=== PATIENT | female | born 1975 | race Caucasian/White ===

== ENCOUNTER 2024-01-27 16:59 | Emergency (ER) | payer OTHER ==
[~2024-01-27] VITALS: Ht 167.6 cm; Wt 59.0 kg
[2024-01-27 17:19] VITALS: BP 150/83; PULSE 90; RESP 16; TEMP 98.8; O2SAT 99
== END 2024-01-27 20:03 | disposition home or self-care (01) ==
LOC: ER 17:00
DX: S02.2XXA Fracture of nasal bones, initial encounter for closed fracture (principal); J34.89 Other specified disorders of nose and nasal sinuses; Z88.0 Allergy status to penicillin; W22.8XXA Striking against or struck by other objects, initial encounter; Y93.89 Activity, other specified; Y92.89 Other specified places as the place of occurrence of the external cause; Y99.8 Other external cause status
CPT/HCPCS: 70150; 99283

== ENCOUNTER 2024-03-09 13:40 | Inpatient (IN) | payer OTHER ==
[~2024-03-09] VITALS: Ht 167.6 cm; Wt 58.0 kg
[2024-03-09 14:23] LABS: BASOPHILS % (AUTO) 0.4 % (0-1); EOSINOPHILS # (AUTO) 0.1 X10'3 (0-0.9); EOSINOPHILS % (AUTO) 1.1 % (0-6); HEMATOCRIT 39.9 % (35.0-45.0); HEMOGLOBIN 13.5 g/dl (12.0-16.0); LYMPHOCYTES # (AUTO) 1.9 X10'3 (1.1-4.8); LYMPHOCYTES % (AUTO) 23.9 % (21-51); MEAN CORPUSCULAR HEMOGLOBIN 31.4 PG (27.0-31.0); MEAN CORPUSCULAR HGB CONC 33.9 g/dL (33.0-36.5); MEAN CORPUSCULAR VOLUME 92.6 FL (78-98); MONOCYTES # (AUTO) 0.3 X10'3 (0-0.9); MONOCYTES % (AUTO) 4.3 % (2-12); NEUTROPHILS # (AUTO) 5.4 X10'3 (1.8-7.7); NEUTROPHILS % (AUTO) 70.3 % (42-75); PLATELET COUNT 263 X10'3 (140-440); RED BLOOD COUNT 4.31 X10'6 (4.20-5.60); WHITE BLOOD COUNT 7.8 X10'3 (4.5-11.0)
[2024-03-09 14:27] LABS: URINE HCG NEGATIVE (NEG)
[2024-03-09 14:28] LABS: BILIRUBIN,URINE SMALL (Neg); CLARITY,URINE CLEAR (Clear); COLOR,URINE YELLOW (Yellow); GLUCOSE, URINE NEGATIVE (Neg); KETONES,URINE TRACE mg/dl (Neg); LEUKOCYTE ESTERASE ,URINE NEGATIVE (Neg); NITRITES, URINE NEGATIVE (Neg); OCCULT BLOOD,URINE MODERATE (Neg); PH,URINE 5.5 (4.8-8.0); PROTEIN,URINE NEGATIVE (Neg); UROBILINOGEN,URINE 0.2 E.U/dL (0.2-1.0)
[2024-03-09 14:29] LABS: UA COLLECTION TYPE CLN CATCH MIDSTREAM
[2024-03-09 14:34] LABS: ALANINE AMINOTRANSFERASE 21 U/L (12-78); ALBUMIN 3.9 G/DL (3.4-5.0); ALBUMIN/GLOBULIN RATIO 1.1 (1.1-1.5); ALKALINE PHOSPHATASE 58 IU/L (46-116); ANION GAP 10 (8-16); ASPARTATE AMINO TRANSFERASE 11 U/L (10-37); BILIRUBIN,TOTAL 0.8 MG/DL (0.1-1.0); BLOOD UREA NITROGEN 15 MG/DL (7-18); BUN/CREATININE RATIO 16.3 (10.0-20.0); CALCIUM 8.8 MG/DL (8.5-10.1); CHLORIDE 105 MMOL/L (99-107); CREATININE 0.92 MG/DL (0.40-0.90); GLUCOSE 129 MG/DL (70-104); LIPASE 27 U/L (16-77); POTASSIUM 3.7 MMOL/L (3.5-5.1); SODIUM 141 MMOL/L (135-145); TOTAL CARBON DIOXIDE 26.4 MMOL/L (24-32); TOTAL PROTEIN 7.5 G/DL (6.4-8.2); eCRCL 68 ML/MIN; eGFR 65 ML/MIN
[2024-03-09 14:36] LABS: BACTERIA,URINE FEW /HPF (Neg); MUCUS STRANDS MANY /LPF (Neg); SQUAMOUS EPITHELIAL CELL,UR FEW /LPF (FEW); WBC,URINE 0-4 /HPF (0-4)
[2024-03-09] MEDS ORDERED: iohexol 300mg/ml 100ml inj. ONE (15:00)
[2024-03-09] MEDS: normal saline 1000ML IV soln IVB ONE (15:25)
[2024-03-09] MEDS ORDERED: potassium Cl 40MEQ/1/2NS 520ml 520 ML IV PRN (18:00)
[2024-03-09] MEDS ORDERED: potassium Cl 20 mEq SR tablet PO PRN ×2 (18:00)
[2024-03-09] MEDS ORDERED: magnesium sulf-water 4G/100mL 100 ML IV PRN (18:00)
[2024-03-09] MEDS ORDERED: magnesium sulf-water 2g/50mL 50 ML IV PRN (18:00)
[2024-03-09] MEDS ORDERED: magnesium Cl slow-release 64mg tablet PO PRN (18:00)
[2024-03-09] MEDS ORDERED: HYDROcodone/acetaminophen 5mg/325mg tablet PO PRN (18:00)
[2024-03-09] MEDS ORDERED: acetaminophen 325mg tablet PO PRN (18:00)
[2024-03-09] MEDS ORDERED: morphine 2 MG/ML inj. syringe IV PRN (18:00)
[2024-03-09] MEDS ORDERED: [UNRECOGNIZED DRUG - REMARK] PO (18:23)
[2024-03-09] MEDS ORDERED: FLUT15.87 NAS (18:23)
[2024-03-09] MEDS: normal saline 1000ml 1,000 ML IV SCH (18:48)
[2024-03-09 20:30] VITALS: BP 147/53; PULSE 86; RESP 16; RESP 17; TEMP 97.8; O2SAT 94
[2024-03-09] MEDS ORDERED: temazepam 15mg capsule PO PRN (21:00)
[2024-03-09] MEDS: diatr meglu/diatrizoate 30ml oral sol.-(3 dose) bottle PO SCH (21:17)
[2024-03-09] MEDS: metroNIDAZOLE-Flagyl 500mg/NS 100 ML IV SCH (21:17)
[2024-03-09] MEDS: enoxaparin 40mg/0.4ml syringe SQ SCH (21:25)
[2024-03-09] MEDS: ciprofloxacin lact 400MG/200ML 200 ML IV SCH (22:33)
[2024-03-10] VITALS (21 sets, daily range): BP systolic 115–144; BP diastolic 45–83; PULSE 67–106; RESP 12–20; TEMP 97.5–98.4; O2SAT 96–100
[2024-03-10] MEDS: morphine 2 MG/ML inj. syringe IV PRN (04:04)
[2024-03-10 05:33] LABS: BASOPHILS % (AUTO) 0.5 % (0-1); EOSINOPHILS # (AUTO) 0.1 X10'3 (0-0.9); EOSINOPHILS % (AUTO) 2.2 % (0-6); HEMOGLOBIN 11.4 g/dl (12.0-16.0); LYMPHOCYTES # (AUTO) 1.8 X10'3 (1.1-4.8); LYMPHOCYTES % (AUTO) 28.9 % (21-51); MEAN CORPUSCULAR HEMOGLOBIN 31.2 PG (27.0-31.0); MEAN CORPUSCULAR HGB CONC 33.6 g/dL (33.0-36.5); MEAN CORPUSCULAR VOLUME 92.8 FL (78-98); MONOCYTES # (AUTO) 0.4 X10'3 (0-0.9); MONOCYTES % (AUTO) 6.3 % (2-12); NEUTROPHILS % (AUTO) 62.1 % (42-75); PLATELET COUNT 223 X10'3 (140-440); RED BLOOD COUNT 3.67 X10'6 (4.20-5.60); WHITE BLOOD COUNT 6.4 X10'3 (4.5-11.0)
[2024-03-10 05:49] LABS: ALANINE AMINOTRANSFERASE 16 U/L (12-78); ALKALINE PHOSPHATASE 42 IU/L (46-116); ANION GAP 7 (8-16); ASPARTATE AMINO TRANSFERASE 11 U/L (10-37); BILIRUBIN,TOTAL 0.6 MG/DL (0.1-1.0); BLOOD UREA NITROGEN 7 MG/DL (7-18); BUN/CREATININE RATIO 9.5 (10.0-20.0); CALCIUM 8.1 MG/DL (8.5-10.1); CHLORIDE 108 MMOL/L (99-107); CREATININE 0.74 MG/DL (0.40-0.90); GLUCOSE 89 MG/DL (70-104); POTASSIUM 3.8 MMOL/L (3.5-5.1); SODIUM 138 MMOL/L (135-145); TOTAL CARBON DIOXIDE 22.7 MMOL/L (24-32); eCRCL 84 ML/MIN; eGFR 83 ML/MIN
[2024-03-10] MEDS: acetaminophen 325mg tablet PO PRN (10:00)
[2024-03-10] MEDS: SUMAtriptan 25 MG tablet PO ONE (15:51)
[2024-03-10] MEDS ORDERED: BUPIVAcaine 2.5mg/ml inj 50ml vial (contains preservative) ONE (15:54)
[2024-03-10] MEDS ORDERED: morphine 2 MG/ML inj. syringe IV PRN (17:25)
[2024-03-10] MEDS ORDERED: labetalol 20mg/4ml (5mg/ml) syringe IV PRN (17:25)
[2024-03-10] MEDS ORDERED: hydrALAZINE 20mg/ml inj. IV PRN (17:25)
[2024-03-10] MEDS ORDERED: meperidine/PF 25mg/ml syringe IV PRN ×2 (17:25)
[2024-03-10] MEDS ORDERED: proCHLORperazine 10 MG/2 ml inj IV PRN (17:25)
[2024-03-10] MEDS ORDERED: ondansetron/PF 4mg/2ml inj IV PRN ×2 (17:25→19:45)
[2024-03-10] MEDS ORDERED: midazolam 1 mg/ML 2ml injection ONE (17:43)
[2024-03-10] MEDS ORDERED: sevoflurane 250ml liquid IH ONE (17:51)
[2024-03-10] MEDS ORDERED: fentaNYL /PF 50mcg/ml 5ml ampule ONE (17:54)
[2024-03-10] MEDS: BUPIVAcaine/PF 2.5 mg/ml (0.25%) 30ml vial IJ ONE (18:41)
[2024-03-10] MEDS ORDERED: dexamethasone sod phosphate 4mg/ml inj. ONE (19:10)
[2024-03-10] MEDS ORDERED: rocuronium 10mg/ml inj IV ONE (19:10)
[2024-03-10] MEDS ORDERED: ondansetron/PF 4mg/2ml inj ONE (19:10)
[2024-03-10] MEDS ORDERED: LIDOcaine 2% (20mg/ml) 5ml vial ONE (19:10)
[2024-03-10] MEDS ORDERED: propofol inj 20 ML IV ONE (19:10)
[2024-03-10] MEDS ORDERED: ceFOXitin 1000 MG inj ONE ×2 (19:10)
[2024-03-10] MEDS ORDERED: neostigmine methylsulfate 1 MG/ML 10ml vial ONE (19:11)
[2024-03-10] MEDS: acetaminophen 1,000mg/100ml IV 100 ML IV ONE (19:29)
[2024-03-10] MEDS: meperidine/PF 25mg/ml syringe IV PRN (19:29)
[2024-03-10] MEDS: ondansetron/PF 4mg/2ml inj IV PRN (19:42)
[2024-03-10] MEDS ORDERED: naloxone 0.4 mg/ml inj IV PRN (19:45)
[2024-03-10] MEDS: morphine 4 MG/ML inj SYRINge IV PRN (19:45)
[2024-03-10] MEDS ORDERED: HYDROcodone/acetaminophen 5mg/325mg tablet PO PRN (19:45)
[2024-03-10] MEDS: ketorolac trometh. 30mg/ml inj. IV SCH (19:52)
[2024-03-10] MEDS: HYDROcodone/acetaminophen 10/325mg tab PO PRN (20:39)
[2024-03-10] MEDS: ringers solution, lacted 1,000 ML IV SCH (21:03)
[2024-03-11] VITALS (8 sets, daily range): BP systolic 104–128; BP diastolic 52–73; PULSE 75–97; RESP 16–18; TEMP 97.8–98.4; O2SAT 94–100
[2024-03-11 06:42] LABS: BASOPHILS % (AUTO) 0.1 % (0-1); EOSINOPHILS % (AUTO) 0 % (0-6); HEMOGLOBIN 13.1 g/dl (12.0-16.0); LYMPHOCYTES # (AUTO) 0.3 X10'3 (1.1-4.8); LYMPHOCYTES % (AUTO) 4.7 % (21-51); MEAN CORPUSCULAR HEMOGLOBIN 31.8 PG (27.0-31.0); MEAN CORPUSCULAR HGB CONC 34.6 g/dL (33.0-36.5); MEAN CORPUSCULAR VOLUME 91.8 FL (78-98); MEAN PLATELET VOLUME 7.3 FL (7.4-10.4); MONOCYTES # (AUTO) 0.1 X10'3 (0-0.9); MONOCYTES % (AUTO) 1.1 % (2-12); NEUTROPHILS # (AUTO) 6.7 X10'3 (1.8-7.7); NEUTROPHILS % (AUTO) 94.1 % (42-75); PLATELET COUNT 261 X10'3 (140-440); RED BLOOD COUNT 4.14 X10'6 (4.20-5.60); WHITE BLOOD COUNT 7.1 X10'3 (4.5-11.0)
[2024-03-11 07:06] LABS: ALANINE AMINOTRANSFERASE 17 U/L (12-78); ALBUMIN 3.2 G/DL (3.4-5.0); ALKALINE PHOSPHATASE 46 IU/L (46-116); ANION GAP 14 (8-16); ASPARTATE AMINO TRANSFERASE 13 U/L (10-37); BILIRUBIN,TOTAL 0.6 MG/DL (0.1-1.0); BLOOD UREA NITROGEN 6 MG/DL (7-18); BUN/CREATININE RATIO 8.7 (10.0-20.0); CALCIUM 8.4 MG/DL (8.5-10.1); CHLORIDE 104 MMOL/L (99-107); CREATININE 0.69 MG/DL (0.40-0.90); GLUCOSE 115 MG/DL (70-104); POTASSIUM 4.3 MMOL/L (3.5-5.1); SODIUM 139 MMOL/L (135-145); TOTAL CARBON DIOXIDE 21.3 MMOL/L (24-32); TOTAL PROTEIN 6.5 G/DL (6.4-8.2); eCRCL 90 ML/MIN; eGFR 90 ML/MIN
[2024-03-12 06:00] VITALS: BP 107/64; PULSE 79; RESP 18; TEMP 98.2; O2SAT 97
[2024-03-12 08:12] VITALS: RESP 18; O2SAT 97
[2024-03-12 08:36] LABS: BASOPHILS % (AUTO) 0.3 % (0-1); EOSINOPHILS # (AUTO) 0.1 X10'3 (0-0.9); EOSINOPHILS % (AUTO) 1.1 % (0-6); HEMATOCRIT 31.9 % (35.0-45.0); HEMOGLOBIN 10.8 g/dl (12.0-16.0); LYMPHOCYTES % (AUTO) 31.7 % (21-51); MEAN CORPUSCULAR HEMOGLOBIN 31.5 PG (27.0-31.0); MEAN CORPUSCULAR VOLUME 92.6 FL (78-98); MONOCYTES # (AUTO) 0.4 X10'3 (0-0.9); MONOCYTES % (AUTO) 5.9 % (2-12); NEUTROPHILS # (AUTO) 3.8 X10'3 (1.8-7.7); PLATELET COUNT 231 X10'3 (140-440); RED BLOOD COUNT 3.44 X10'6 (4.20-5.60); RED CELL DISTRIBUTION WIDTH 13.2 % (11.5-14.5); WHITE BLOOD COUNT 6.3 X10'3 (4.5-11.0)
[2024-03-12 08:55] LABS: ALANINE AMINOTRANSFERASE 16 U/L (12-78); ALKALINE PHOSPHATASE 37 IU/L (46-116); ANION GAP 10 (8-16); ASPARTATE AMINO TRANSFERASE 11 U/L (10-37); BILIRUBIN,TOTAL 0.5 MG/DL (0.1-1.0); BLOOD UREA NITROGEN 4 MG/DL (7-18); BUN/CREATININE RATIO 5.6 (10.0-20.0); CALCIUM 8.1 MG/DL (8.5-10.1); CHLORIDE 108 MMOL/L (99-107); CREATININE 0.72 MG/DL (0.40-0.90); GLUCOSE 97 MG/DL (70-104); POTASSIUM 3.7 MMOL/L (3.5-5.1); SODIUM 141 MMOL/L (135-145); TOTAL CARBON DIOXIDE 23.5 MMOL/L (24-32); TOTAL PROTEIN 5.9 G/DL (6.4-8.2); eCRCL 87 ML/MIN; eGFR 86 ML/MIN
[2024-03-12 10:00] VITALS: BP 118/69; PULSE 89; RESP 16; TEMP 97.7; O2SAT 99
[2024-03-12] MEDS ORDERED: ACET-1008 PO (10:47)
[2024-03-12] MEDS ORDERED: CIPR-259 PO (10:49)
[2024-03-12] MEDS ORDERED: METR375C2 PO (10:49)
== END 2024-03-12 12:35 | disposition home or self-care (01) | DRG 399 ==
LOC: ER 13:41 → ED HOLD 18:08 → ORTHO 4S 20:33
PROVIDERS: ADMIT Internal Medicine; ATTEND Internal Medicine
PROC: 8E0W4CZ Robotic Assisted Procedure of Trunk Region, Percutaneous Endoscopic Approach (ICD-10-PCS; 2024-03-10)
PROC: BW21ZZZ Computerized Tomography (CT Scan) of Abdomen and Pelvis (ICD-10-PCS; 2024-03-10)
PROC: 0DTJ4ZZ Resection of Appendix, Percutaneous Endoscopic Approach (ICD-10-PCS; principal; 2024-03-10 17:51)
DX: K35.80 Unspecified acute appendicitis (principal); Z88.0 Allergy status to penicillin
CPT/HCPCS: 96360; 99285; Z7506; Z7508; 36415; 74176; 74177; 80053; 81001; 81025; 82948; 83605; 83690; 84145; 85025; 85651; 87040; 87081; 93005; A4215; A4314; A4618; G0378; J0131; J0694; J0744; J1100; J1650; J1885; J2175; J2250; J2270; J2405; J2704; J2710; J3010; J3490; J7030; Q9963; Q9967

== ENCOUNTER 2025-08-28 08:39 | Emergency (ER) | payer BC, OTHER ==
[~2025-08-28] VITALS: Ht 167.6 cm; Wt 59.7 kg
[~2025-08-28 08:39] MED LIST: ACET-1008 PO; FLUT15.87 NAS; METR375C2 PO; [UNRECOGNIZED DRUG - REMARK] PO
--- NOTE | 2025-08-28 09:01 | Physician Documentation ---
History of Present Illness ~ Chief Complaint: See Chief Complaint Stated Complaint: EYE INFECTION AND FLANK PAIN Time Seen by MD: 08:49 Mode of Arrival: Ambulatory HPI 50-year-old female presents to the ED with a complaint of right eye redness drainage and a pain when blinking. Yesterday she got some Guinea pig shavings in her right eye and feels as though she may not have gotten all of the foreign bodies out. In addition she has had an ongoing cough and reports increased pain in her left lower quadrant add abdomen especially when coughing. Denies any current bulges. Denies any fevers does report that she has a some purulent drainage coming from her right eye. Medication Reconciliation Allergies: Coded Allergies: Penicillins (Verified Allergy, Unknown, 08/28/25) Scheduled Acetaminophen (Tylenol), 1 TAB PO Q8H, (Reported) Erythromycin Base Opth. Ointment* (Erythromycin Opth. Ointment*), 1 APPLIC R IGHTEYE Q4HWA Metronidazole (Flagyl), 1 CAP PO Q12H l-Norgest/E.estradiol-E.estrad (Jaimiess 0.15-0.03-0.01 mg Tab), 1 TAB PO DAILY, (Reported) Scheduled PRN Fluticasone Propionate (24 Hour Allergy Relief), 2 SPRAYS ANATOLY DAILY PRN for allergies, (Reported) Past Medical History Alcohol Use: Occasionally Drug Use: none Lives with: Family Occupation: employed Review of Systems All Other Systems at this time: Reviewed and Negative ROS As stated above in the HPI, otherwise all systems are reviewed and negative. Physical Exam Vital Signs: Temperature: 97.8, Source: Temporal, Heart Rate: 106, Respiratory Rate: 15, BP: 139/72, Pulse Oximetry: 99, Weight: 59.700 Oxygen Flow Rate: 0 Physical Exam General: Alert, no apparent distress. HEENT: PERRL, EOMI, right conjunctiva injected with purulent discharge Respiratory: Lungs clear, no respiratory distress. Chest: No accessory muscle use. Cardiovascular: Regular rate and rhythm, no murmurs. Gastrointestinal: Soft, her left lower quadrant via palpation,notable bulge when coughing Neurologic: Oriented x4. Psychiatric: Normal mood and affect. Skin: Normal color, warm and dry. No edema, no ecchymosis. Progress Results/Orders Results/Orders Orders - ROSE SWEET EDITOR DICTIONARY Ultrasound Of Abdomen (08/28/25 08:57) Completed Orders - ROSE SWEET EDITOR DICTIONARY Ultrasound Of Abdomen (08/28/25 08:57) Proparacaine Ophth Solution (Alcaine Oph (08/28/25 09:00) Vital Signs 08/28/25 08/28/25 08/28/25 08/28/25 08:43 08:54 08:57 09:49 Temp 97.8 97.8 97.8 Pulse 106 99 76 Resp 18 15 16 16 B/P (MAP) 139/72 140/79 (99) 134/87 Pulse Ox 99 97 99 O2 Flow Rate 0 0 Medical Decision Making Additional information obtaine: old records Findings Using the Wood's lamp Procrit proparacaine and fluorescein was able to visualize a notable corneal abrasion on the right lateral aspect of the cornea no evidence of foreign bodies however patient has developed suspected bacterial conjunctivitis which I will treat her for. I advised the patient that her left lower quadrant pain was negative for any signs of hernia via ultrasound however it is important that she follows up with primary care her symptoms persist. Ear Diff. Dx: Considerations: Unlikely: Abrasion, Cerumen impaction, Foreign b shirlene, Otitis externa, Barotrauma, Otitis media, Perforation, Referred pain- dental, Referred pain-pharyngitis, Referred pain-sinusitis, Referred pain-TMJ syn., Tympanic Membrane Injury, Other Eye Diff. Dx: Considerations: Include: Chalazoin, Conjuctivits-allergic, Conjuctivitis-bacterial, Conjuctivits-chlamydial, Conjuctivitis-viral, Corneal abrasion, Corneal laceration, Corneal ulceration, Foreign body-conjuctiva, Foreign body-corneal, Foreign body-intraocular, Foreign body-lid, Glaucoma, Globe rupture, Hordeolum, Iritis, Orbital cellulitis, Periobital cellulitis, Retinal artery occulsion, Retinal vein occlusion, Rust ring, Subconjunctival hem, Ultraviolet keratitis, Uveitis, Vitreous hemorrhage, Other Nose Diff. Dx: Considerations: Unlikely: Abrasion, Anterior nasal bleed, Avulsion, Contusion, Coagulopathy, Fracture-nasal bone, Fracture-septum, Hypertension, Laceration, Other, Posterior nasal bleed, Retained foreign body, Septal hematoma Tooth Diff. Dx: Considerations: Unlikely: Alveolar fracture, Aveolar osteitis, ANUG, Facial cellulitis, Periapical abscess, Periodontal abscess, Post- extraction bleeding, Pulpitis, Trigeminal neuralgia, Tooth-avulsion, Tooth- eruption, Tooth-fracture, Tooth-subluxation, Other Throat Diff Dx: Considerations: Include: AIDS, Epiglottitis, Esophageal candidiasis, Hand foot mouth disease, Herpangina, Herpetic stomatitis, Herpes simplex, Infection mononucleosis, Immunodeficiency, Chidi's angina, P eritonsillar abscess, Peritonsillar cellulitis, Pharyngitis-diphtheria, Pharyngitis-strepococcal, Pharyngitis-viral, Thrush, URI, Other Departure Disposition: HOME / SELF CARE / HOMELESS Impression: Primary Impression: Bacterial conjunctivitis Condition: Improved Discharge Instructions: Bacterial Conjunctivitis, Adult, [id number], Corneal Abrasion, [id number] Referrals: NO PRIMARY CARE PROVIDER (PCP) Prescriptions Erythromycin Base Opth. Ointment* (Erythromycin Opth. Ointment*) 1 Gm Tube 1 APPLIC [facility], #1 EACH Prov: ROSE SWEET NP 08/28/25 Education Educated: Patient Educated regarding: diagnosis Signature Scribe Signature: i Attestation: Scribed for Rose Sweet Practical Nursing Instructor by Rose Sweet - JN . 08/28/25 09:23 ROSE SWEET NP Aug 28, 2025 09:01
[2025-08-28] MEDS: proparacaine 0.5% ophthalmic drops 15ml EACHEYE ONE (09:14)
[2025-08-28] MEDS ORDERED: ERYT1OIN6 RIGHTEYE (09:25)
[2025-08-28 09:49] VITALS: BP 134/87; PULSE 76; RESP 16; TEMP 97.8; O2SAT 99
--- NOTE | 2025-08-28 17:27 | RADIOLOGY REPORT ---
PROCEDURE: US ULTRASOUND OF ABDOMEN [facility] - [facility] Study Date and Requested Time: 08/28/2025 09:10 AM History: LLQ hernia COMPARISON: CT abdomen and pelvis 03/10/2024 TECHNIQUE: Multiple high resolution stevenson-scale images obtained of the left lower abdominal quadrant of the abdomen with color Doppler for evaluation of blood flow and vascularity as indicated. FINDINGS /impression: No hernia, masses or fluid collections are noted. No abnormal enhancement is noted.
== END 2025-08-28 09:57 | disposition home or self-care (01) ==
LOC: ER 08:40
DX: H10.89 Other conjunctivitis (principal); Z88.0 Allergy status to penicillin; Z79.899 Other long term (current) drug therapy; Z72.89 Other problems related to lifestyle
CPT/HCPCS: 76705; 99284